=== PATIENT | male | born 1970 | race Caucasian/White ===

== ENCOUNTER 2023-09-09 09:39 | Emergency (ER) | payer OTHER, SELFPAY ==
[2023-09-09 09:40] VITALS: BP 162/105; PULSE 80; RESP 15; TEMP 36.6; O2SAT 96; BMI 25.0
[2023-09-09] MEDS: PROPARACAINE 0.5% OPHTH SOL 1 DROPS EYE-RIGHT (09:50)
[2023-09-09] MEDS: FLUORESCEIN 1 MG STRIP EYE-RIGHT (09:51)
[2023-09-09] MEDS: TET,DIPH,PERTUSS(ACELL),VAC/PF 0.5 ML SYRINGE IM (09:51)
[2023-09-09] MEDS: ACETAMINOPHEN 325 MG TABLET 975 MG PO (10:36)
--- NOTE | 2023-09-09 15:41 | ED.EYEPROB ---
HPI - Eye Problem General Chief complaint: Eye Problems Stated complaint: foreign object in eye Time Seen by Provider: 09/09/23 09:52 Source: patient Mode of arrival: Ambulatory History of Present Illness HPI Narrative: 53-year-old man presenting with right eye pain. Onset was last night. During the day yesterday he had been doing some grinding and sanding using power tools and not always with eye protection. He initially did not notice any symptoms however last night started having pain in his right eye like he has something in there. He has not in any blurring is a little bit of extra watering. He says he feels like there might be something under his upper lid. He does not know when his last tetanus shot was. He has not wear contact lenses or glasses. He has not having any fevers no visual changes. Related Data Previous Rx's Medication Instructions Recorded erythromycin 5 mg/gram (0.5 %) eye 1 applic EYE-RIGHT TID 3 days #3.5 09/09/23 ointment grams Allergies Allergy/AdvReac Type Severity Reaction Status Date / Time No Known Drug Allergies Allergy Verified 09/09/23 09:45 Patient History Social History Smoking Status: Current every day smoker Smoking Status: Current every day smoker alcohol intake frequency: 0-2 drinks per day Substance Use Type: does not use Exam Initial Vital Signs Initial Vital Signs: Vital Signs Temperature 97.8 F 09/09/23 09:40 Pulse Rate 80 09/09/23 09:40 Respiratory Rate 15 09/09/23 09:40 Blood Pressure 162/105 H 09/09/23 09:40 Pulse Oximetry 96 09/09/23 09:40 Oxygen Delivery Method Room Air 09/09/23 09:40 Const General: No acute distress Eyes Other: There is some injection of the conjunctiva of the right eye. There was no foreign body there is no chemosis. Pupils are equal and reactive extraocular movements are intact no hyphema no visible foreign body. He has relief of his symptoms with instillation of topical anesthetic. On fluorescein exam there is fluorescein uptake at about 1:00 a.m. on the cornea. Lids are everted without sign of a foreign body there. Resp Effort & Inspection: normal respiratory effort Course Orders Ordered: Discontinued Medications Acetaminophen (Acetaminophen 325 Mg Tablet) 975 mg PO NOW ONE Stop: 09/09/23 10:22 Last Admin: 09/09/23 10:36 Dose: 975 mg Documented By: MILDRED Diphtheria/Tetanus/Acell Pertussis (Tet,Diph,Pertuss(Acell),Vac/Pf 0.5 Ml Syringe) 0.5 ml IM .ONCE ONE Stop: 09/09/23 09:49 Last Admin: 09/09/23 09:51 Dose: 0.5 ml Documented By: JACOB Fluorescein Sodium (Fluorescein 1 Mg Strip) 1 mg EYE-RIGHT NOW ONE Stop: 09/09/23 09:45 Last Admin: 09/09/23 09:51 Dose: 1 mg Documented By: JACOB Proparacaine HCl (Proparacaine 0.5% Ophth Leona) 1 drops EYE-RIGHT NOW ONE Stop: 09/09/23 09:45 Last Admin: 09/09/23 09:50 Dose: 1 1000units Documented By: JACOB Vital Signs Vital signs: Vital Signs - 8 hr 09/09/23 09:40 Temperature 97.8 F Pulse Rate 80 Respiratory Rate 15 Blood Pressure 162/105 H Pulse Oximetry 96 Oxygen Delivery Method Room Air MDM - Eye Problem MDM Narrative Medical decision making narrative: 53-year-old male presenting with a foreign body sensation in his right eye. No foreign bodies identified however he does have a corneal abrasion in the history that is consistent with that. Tetanus was updated, I started him on erythromycin ointment and recommended ophthalmology follow up if symptoms are not improving. Indications for return to emergency department are reviewed. I considered but do not suspect glaucoma and ruptured globe. Discharge Plan Departure Patient Disposition: Home Clinical Impression: Corneal abrasion Qualifiers: Encounter type: initial encounter Laterality: right Qualified Code(s): S05.01XA - Injury of conjunctiva and corneal abrasion without foreign body, right eye, initial encounter Activity Restrictions/Additional Instructions: We saw you today for corneal abrasion of the right eye. There does not appear to be a retained foreign body. You should expect to have a foreign body sensation continuing however as this is indistinguishable from a corneal abrasion. You can use ibuprofen 600 mg every 6-8 hours as needed for pain, can also use acetaminophen (Tylenol). A cool washcloth applied to your eye lid often times is helpful as well. Try not to scratch her eye or put things in your eye. I have provided a prescription for erythromycin ointment that you can use to keep your eye lubricated and protect the abrasion. We gave you a tetanus booster today, this is good for 10 years. If you are having persistent symptoms make an appointment with Ophthalmology. If you are having severe pain, purulent discharge from your eye or other acute symptoms recheck in the emergency department. Prescriptions: New erythromycin 5 mg/gram (0.5 %) ointment 1 applic EYE-RIGHT TID 3 Days Qty: 3.5 0RF Referrals: Amanda Mooney MD [Physician] - (Call for follow up if symptoms are not improving within 24 hours) Stand Alone Forms: Patient Portal/API
== END 2023-09-09 10:37 | disposition home or self-care (01) ==
PROVIDERS: Emergency Provider Emergency Medicine
DX: S05.01XA Injury of conjunctiva and corneal abrasion without foreign body, right eye, initial encounter (principal); Z23 Encounter for immunization
CPT/HCPCS: 90471; 99283; 90715

== ENCOUNTER → 2024-11-27 06:40 | Outpatient (CLI) | payer OTHER, SELFPAY ==
--- NOTE | 2024-11-27 06:41 | DI.US.S_ITS ---
PROCEDURE: US ABDOMEN LIMITED INDICATIONS: LEFT INGUINAL LUMP TECHNIQUE: Real-time focused scanning was performed of the abdomen, with image documentation. COMPARISON: None. FINDINGS: Multiple grayscale color Doppler images of the left inguinal region were acquired at the patient directed area of palpable concern. There is a fat and fluid containing left inguinal hernia measuring 5.5 x 1.4 x 3.9 cm. Wall defect of the hernia measures 1.0 cm in size. The hernia appears to be at least partially reducible after cessation of Valsalva. IMPRESSION: Fat and fluid containing left inguinal hernia. Dictated by: Reymundo Constantino M.D. on 11/27/2024 at 10:54 Approved by: Reymundo Constantino M.D. on 11/27/2024 at 11:00
--- NOTE | 2024-11-27 06:41 | DI.CT.S_ITS ---
PROCEDURE: CT LUNG LOW DOSE SCREENING INDICATIONS: 30 year smoking hx TECHNIQUE: Noncontrast 2.0-2.5 mm thick sections acquired from the pulmonary apices to the posterior costophrenic angles. 7 mm thick axial MIP, and 5 mm coronal and sagittal reformats were then acquired. For radiation dose reduction, the following was used: automated exposure control, adjustment of mA and/or kV according to patient size. COMPARISON: [facility], , US ABDOMEN LIMITED, 11/27/2024, 7:03. FINDINGS: Image quality: Diagnostic. Lower Neck: No enlarged lymph nodes. Thyroid: No thyroid nodules which require sonographic follow up, per consensus guidelines. Axillae: No enlarged lymph nodes. Chest Wall: Unremarkable. Bones: Visualized osseous structures appear intact without acute fracture or focal destructive lesion. No acute compression fractures of the imaged spine. Lungs and Pleura: No pneumothorax. No substantial pleural effusion. No septal thickening or nodularity. Multiple scattered bilateral pulmonary nodules are identified. Largest in the left lower lobe measures 5 mm (204/series 3). Largest in the left upper lobe measures 4 mm (132/series 3). Largest in the right upper lobe measures 6 mm and is pleural based (92/series 3). Largest in the right middle lobe measures 3 mm (155/series 3). Largest in the right lower lobe measures 6 mm (196/series 3). No suspicious pulmonary mass. No acute consolidation. Mild dependent atelectasis. Heart: Heart size is normal. No pericardial effusion. Thoracic Vessels: The aorta and pulmonary arteries demonstrate normal size. Mediastinum and Aliyah: No enlarged lymph nodes. Esophagus: No wall thickening. No hiatal hernia. Upper Abdomen: Multiple hepatic hypodensities are noted measuring up to 2.2 cm in size and measuring close to simple fluid attenuation. These are likely cysts. Other visualized upper abdomen solid organs and bowel loops appear unremarkable. IMPRESSION: Multiple scattered bilateral pulmonary nodules measuring up to 6 mm in size. LUNG-RADS 3; recommend follow-up chest CT in 6 months to document stability versus resolution. Clinically Significant Non-pulmonary Findings: Multiple hepatic hypodensities possibly representing cysts. However, recommend abdominal ultrasound to evaluate for cystic or solid nature of these findings versus alternatively multiphasic contrast enhanced CT or MRI of the abdomen using hepatic mass protocol to better characterize. Dictated by: Reymundo Constantino M.D. on 11/27/2024 at 10:40 Approved by: Reymundo Constantino M.D. on 11/27/2024 at 10:54
== END ==
PROVIDERS: PCP Family Medicine; Referring Provider Family Medicine; Visit Provider Family Medicine
DX: R91.8 Other nonspecific abnormal finding of lung field (principal); R93.2 Abnormal findings on diagnostic imaging of liver and biliary tract; K40.90 Unilateral inguinal hernia, without obstruction or gangrene, not specified as recurrent; F17.210 Nicotine dependence, cigarettes, uncomplicated
CPT/HCPCS: 71271; 76705

== ENCOUNTER 2025-01-10 07:45 | Day surgery (SDC) | payer OTHER, SELFPAY ==
[2025-01-08 08:38] VITALS: BMI 27.8
[2025-01-10 08:09] VITALS: BP 163/102; PULSE 74; RESP 16; TEMP 36.2; O2SAT 99; BMI 27.8
[2025-01-10] MEDS: LACTATED RINGERS 1,000 ML 42 ML IV (08:24)
[2025-01-10] MEDS: ACETAMINOPHEN 325 MG TABLET 975 MG PO (08:26)
--- NOTE | 2025-01-10 08:55 | PM.PREOP ---
Pre-operative Note COVID-19 COVID-19 status: Not tested Interval Note History & Physical reviewed/Exam performed by Physician: Yes Changes to H&P: No ASA Class (for procedural sedation): II
[2025-01-10] MEDS: CEFAZOLIN 2 GM/100 ML PREMIX 100 ML IV (09:35)
--- NOTE | 2025-01-10 09:48 | SUR.OPER ---
Supine on padded OR bed, head on pillow, arms padded and tucked at sides, legs uncrossed, safety belt at thigh, tape over blanket over lower legs .
[2025-01-10] MEDS: BUPIVACAINE 0.5% W/ EPI (PF) 30 ML VIAL INJ (09:55)
--- NOTE | 2025-01-10 11:16 | PM.OP.1 ---
Operative Date/Time/Diagnoses Date of procedure: 01/10/25 Time of procedure: 11:16 Pre-op diagnosis: Left inguinal hernia and umbilical hernia Post-op diagnosis: same Procedure & Clinicians Procedure: Laparoscopic left inguinal hernia repair with mesh Primary umbilical hernia repair Same procedure as scheduled: Yes Surgeon: Bob Headley Business Support Administrator: Manoj Gant Anesthesia Type: General Operative Notes Procedure in detail: The patient was given preoperative antibiotics. The patient was brought to the operating room, placed on the table in the supine position with the arms tucked and general anesthesia was induced. The abdomen was prepped and draped in the usual fashion. A time-out was performed. A 2 cm transverse incision was created inferior to the umbilicus and dissection was carried down to the hernia sac. The hernia defect was about 1 cm. The peritoneum was opened under direct vision to gain entry to the peritoneal cavity. The Randi port was placed and the abdomen was insufflated to 15 mmHg. The camera was inserted, there was no evidence of any injury from the entry. There was a relatively large indirect left inguinal hernia. 5 mm ports were placed under direct vision in the mid left and mid right abdomen. The patient was positioned in Trendelenburg. We created left peritoneal flap. The peritoneum was dissected off the left cord structures and the Surjit's ligament was exposed. A large left Bard mesh was brought in and placed over the defect with the medial edge against Surjit's ligament. We then closed the peritoneal flap with a running 3-0 barbed suture. We took one last look around the abdomen and saw no other abnormalities. The suture was removed and accounted for. The 5 mm ports were removed under direct vision. The abdomen was desufflated. The Randi port was removed. Additional local was injected into the umbilical fascia and the fascial incision was closed with 3 interrupted 0 Ethibond sutures. The skin incisions were closed with 4 Monocryl, Steri-Strips and Band-Aids. EBL: 10 mL Manoj MARSHALL provided assistance with exposure, retraction and closure of incisions. Post-operative Condition: stable Disposition: PACU
[2025-01-10 11:28] VITALS: BP 148/96; PULSE 83; RESP 12; TEMP 36.3; O2SAT 95
[2025-01-10 11:33] VITALS: BP 143/86; PULSE 81; RESP 12; TEMP 36.3; O2SAT 95
[2025-01-10 11:40] VITALS: BP 147/94; PULSE 83; RESP 12; TEMP 36.3; O2SAT 96
[2025-01-10 11:46] VITALS: BP 127/82; PULSE 82; RESP 16; TEMP 36.3; O2SAT 96
[2025-01-10 11:54] VITALS: BP 125/80; PULSE 81; RESP 15; TEMP 36.3; O2SAT 97
[2025-01-10] MEDS: ONDANSETRON 4 MG/2 ML INJ IV (12:06)
[2025-01-10] MEDS: OXYCODONE IR 5 MG TABLET PO (12:06)
== END 2025-01-10 12:30 | disposition home or self-care (01) ==
PROVIDERS: PCP Family Medicine; Referring Provider Surgery; Visit Provider Surgery
PROC: 0YQ64ZZ Repair Left Inguinal Region, Percutaneous Endoscopic Approach (ICD-10-PCS; CPT 49650; principal; 2025-01-10 09:15)
PROC: (CPT 49650; 2025-01-10 09:15)
DX: K40.90 Unilateral inguinal hernia, without obstruction or gangrene, not specified as recurrent (principal); K42.9 Umbilical hernia without obstruction or gangrene; F17.210 Nicotine dependence, cigarettes, uncomplicated
CPT/HCPCS: 49650; C1781; J0330; J0690; J1100; J1171; J1885; J2250; J2405; J2704; J3010; J3490

== ENCOUNTER 2025-02-15 07:59 | Day surgery (SDC) | payer OTHER, SELFPAY ==
--- NOTE | 2025-02-15 | PATH_ITS ---
[facility] Accession Number: [id number] No. of containers..03 Tissue . 01 Material submitted: . PART A: colon - ASCENDING POLYP PART B: colon - DESCENDING POLYPS PART C: rectum - RECTAL POLYP . 01 Diagnosis: A. ASCENDING COLON POLYP: Tubular adenoma. . B. DESCENDING COLON POLYPS: Tubular adenoma. . C. RECTAL POLYP: Hyperplastic polyp. [facility] 02/21/2025 1404 Local . 01 Comment: B. Only one biopsy fragment is received for histologic evaluation. . 01 Electronically signed: . Hardeep Lucas MD, PhD, Pathologist NPI- [id number] . 01 Gross description: . Part A: ASCENDING POLYP: Received in formalin is 1 fragment(s) of nash, soft tissue measuring 0.3 x 0.2 x 0.2 cm submitted entirely in 1 cassette(s) Part B: DESCENDING POLYPS: Received in formalin is 1 fragment(s) of nash, soft tissue measuring 1.2 x 0.6 x 0.5 cm submitted entirely in 1 cassette(s) Part C: RECTAL POLYP: Received in formalin is 1 fragment(s) of nash, soft tissue measuring 0.4 x 0.4 x 0.3 cm submitted entirely in 1 cassette(s) /[facility]ARR[facility] 02/20/2025 0051 Local . 01 Pathologist provided ICD-10: D12.6, K62.1 . 01 CPT . 050614, 038621, 702530 Specimen Comment: A courtesy copy of this report has been sent to [phone] Performed at: [address] [address], [place], [place] [id number] MD Pasha Colunga MD Phone: [phone]
[2025-02-15 08:52] VITALS: BP 167/99; PULSE 87; RESP 17; TEMP 36.1; O2SAT 96
[2025-02-15] MEDS: LACTATED RINGERS 1,000 ML 42 ML IV (08:55)
--- NOTE | 2025-02-15 09:20 | P.HP_ITS ---
History of Present Illness History of Present Illness Date Patient Seen: 02/15/25 Time Patient Seen: 09:21 Chief complaint: Colonoscopy Narrative: Shane is a 54-year-old man who presents for a colonoscopy for colon cancer screening, his first. No family history of colon cancer. [facility] Medical History (Updated 02/13/25 @ 08:28 by Michael Lawson MD) Family history of prostate cancer Surgical History (Updated 02/13/25 @ 08:32 by Michael Lawson MD) History of umbilical hernia repair (01/10/25) History of left inguinal hernia repair (01/10/25) Social History household members: spouse Smoking Status: Former smoker Tobacco: How many years used: 30 alcohol intake: current substance use type: does not use Meds Home Medications and Allergies Home Medications ?Medication ?Instructions ?Recorded ?Confirmed ?Type sodium,potassium,mag sulfates 17.5 See Rx Instructions PO .COMPLEX 12/13/24 02/15/25 Rx gram-3.13 gram-1.6 gram oral soln #354 mL (Suprep Bowel Prep Kit) Allergies Allergy/AdvReac Type Severity Reaction Status Date / Time No Known Drug Allergies Allergy Verified 02/15/25 08:41 Exam Vital Signs (past 8 hours): - 02/15/25 08:52 Temperature 96.9 F L Pulse Rate 87 Respiratory Rate 17 Blood Pressure 167/99 H Pulse Oximetry 96 Oxygen Delivery Method Room Air Oxygen Delivery Method Room Air Const General: healthy appearing Assessment & Plan Assessment and plan (1) Colon cancer screening: Status: Acute Plan Colonoscopy Time-Based Coding :: [TOTAL MINUTES] spent with patient and on the chart (including review of chart, obtaining history, exam, reviewing outside data, placing orders, documenting exam and treatment plan, and counseling patient) on [DATE]. PROFEE Personnel Supervisor Document charge(s): No
--- NOTE | 2025-02-15 10:36 | PM.OP.COLON ---
Operative Date/Time/Diagnoses Date of procedure: 02/15/25 Time of procedure: 10:36 Pre-op diagnosis: Colon cancer screening Post-op diagnosis: same Procedure & Clinicians Study performed: Colonoscopy Same procedure as scheduled: Yes Surgeon: Bob Headley Procedure Notes Procedure in detail: Surgeon: Bob Headley MD Anesthesia: Tika Darby CRNA Procedure: The patient was brought to the endoscopy suite, placed in left lateral decubitus position. The patient was connected to monitoring devices. A time-out was performed. Sedation was administered. Once the patient was adequately sedated, a digital rectal exam was performed and was normal. The scope was then inserted and advanced to the cecum where the appendiceal orifice was identified and photographed. The scope was then slowly withdrawn over greater than 6 minutes. The mucosa was thoroughly inspected. There was a 5 mm polyp in the ascending colon removed with a cold snare. Were 3 5 mm polyps in the descending colon removed with a cold snare and sent together. There was a 3 mm polyp in the distal rectum removed with a cold snare. The scope was retroflexed in the rectum. No other abnormalities were found. The scope was straightened and removed. The patient was awakened and brought to recovery. Scope withdrawal time: 15 minutes Sedation time: 22 minutes EBL: 5 mL Findings: 5 small polyps as described above Post-procedure Disposition: PACU
[2025-02-15 10:41] VITALS: BP 157/94; PULSE 76; RESP 15; TEMP 36.8; O2SAT 99
[2025-02-15 10:46] VITALS: BP 141/89; PULSE 75; RESP 15; TEMP 36.8; O2SAT 99
== END 2025-02-15 10:52 | disposition home or self-care (01) ==
PROVIDERS: PCP Family Medicine; Referring Provider Surgery; Visit Provider Surgery
PROC: 0DJD8ZZ Inspection of Lower Intestinal Tract, Via Natural or Artificial Opening Endoscopic (ICD-10-PCS; CPT 45378; principal; 2025-02-15 09:15)
DX: Z12.11 Encounter for screening for malignant neoplasm of colon (principal); Z87.891 Personal history of nicotine dependence; Z80.42 Family history of malignant neoplasm of prostate; D12.2 Benign neoplasm of ascending colon; D12.4 Benign neoplasm of descending colon; K62.1 Rectal polyp
CPT/HCPCS: 45385; J2704